=== PATIENT | female | born 1985 | race Caucasian/White ===

== ENCOUNTER 2020-11-22 15:09 | Emergency (ER) | payer OTHER, SELFPAY ==
--- NOTE | 2020-11-22 15:14 | ED.GENADULT ---
HPI - General Adult General Chief complaint: Upper Respiratory Infection Stated complaint: cold symptoms Time Seen by Provider: 11/22/20 15:14 Source: patient Mode of arrival: ambulatory Limitations: no limitations History of Present Illness HPI narrative: 35-year-old female patient presents to the [facility] with request to be tested for COVID-19. Patient states she has no symptoms however her boyfriend that she lives with has had symptoms for the last 2 days is being tested today. Patient states she needs something for work. Related Data Home Medications Medication Instructions Recorded Confirmed fluticasone propionate 50 1 spray NASAL ONCE ml 01/27/20 11/22/20 mcg/actuation nasal spray,suspension levonorgestrel 20 mcg/24 hours (6 1 device I-UTERINE ONCE 01/27/20 11/22/20 yrs) 52 mg intrauterine device cfjhqfcyaicj-rzz-eolb-FA-vit K tablet PO 11/22/20 [Adults Multivitamin] Allergies Allergy/AdvReac Type Severity Reaction Status Date / Time No Known Allergies Allergy Unknown Verified 01/27/20 15:05 Review of Systems Review of Systems: Narrative: CONSTITUTIONAL: Denies fever, chills, or sweats. EYES: Denies visual changes, redness, or discharge. ENT: Denies rhinorrhea, congestion, sore throat, or otalgia. CARDIOVASCULAR: Denies chest pain, palpitations, or edema. RESPIRATORY: Denies cough or dyspnea. GASTROINTESTINAL: Denies abdominal pain, nausea, vomiting, or diarrhea. GENITOURINARY: Denies dysuria or hematuria. SKIN: Denies rash or itching. MUSCULOSKELETAL: Denies back pain, joint pain, or myalgia. NEUROLOGIC: Denies headache, numbness, or weakness. PSYCHIATRIC: Denies anxiety or depression. [facility] Past Medical History Medical History (Updated 11/22/20 @ 15:47 by UTE Earl) Healthy adult No significant past medical history Family History Family History Other Acute myocardial infarction Cerebrovascular accident Depression Diabetes mellitus Heart disease Hypertension Social History Social History Smoking status: Never smoker Alcohol intake: current Substance use: never Comments Test Exam Narrative: Exam Narrative: GENERAL: Well-appearing, well-nourished, and in no acute distress. HEAD: Normocephalic, atraumatic. EYES: PERRLA and EOMI. ENT: Nares clear, no rhinorrhea or epistaxis. Mucous membranes moist. NECK: Supple. No lymphadenopathy CHEST: Clear to auscultation. No respiratory distress. HEART: Regular rate and rhythm. No murmur heard. Normal peripheral pulses. ABDOMEN: Soft, nontender, nondistended, normal active bowel sounds. EXTREMITIES: Normal range of motion. No edema. SKIN: Warm, dry, no rash. NEURO: No focal deficits. Alert and oriented x3. Course Vital Signs Vital signs: Vital Signs Temperature 36.3 C L 11/22/20 15:24 Pulse Rate 66 11/22/20 15:24 Respiratory Rate 16 11/22/20 15:24 Blood Pressure 107/68 11/22/20 15:24 Pulse Oximetry 100 11/22/20 15:24 Temperature 36.3 C L 11/22/20 15:24 Pulse Rate 66 11/22/20 15:24 Respiratory Rate 16 11/22/20 15:24 Blood Pressure 107/68 11/22/20 15:24 Pulse Oximetry 100 11/22/20 15:24 Vital signs reviewed Medical Decision Making Differential Diagnosis Differential Diagnosis: Differential diagnosis: URI, sinusitis, seasonal allergies, COVID-19 Discussed with patient that we are not a public testing facility and we only see patients with symptoms. Discussed with her that since she has no symptoms and her boyfriend has only had symptoms for 2 days we will need to wait to test her. Discussed with her that if we test her today she most likely is going to come up negative which is most likely going to be a false negative. Discussed with patient that she will need to wait a minimum of 6 days before she can get tested and as long as she continues not to have sympto
[2020-11-22 15:24] VITALS: BP 107/68; PULSE 66; RESP 16; TEMP 36.3; O2SAT 100
== END 2020-11-22 15:54 | disposition home or self-care (01) ==
PROVIDERS: Emergency Provider Nurse Practitioner Family
DX: Z20.822 Contact with and (suspected) exposure to COVID-19 (principal)
CPT/HCPCS: 99211; G0463

== ENCOUNTER 2020-12-05 21:39 | Emergency (ER) | payer OTHER, SELFPAY ==
--- NOTE | ~2020-12-05 | CT_ITS ---
EXAMINATION: CT abdomen pelvis w con DATE: 12/05/2020 23:29 INDICATION: Abdominal pain. TECHNIQUE: Computed tomography (CT) of the abdomen and pelvis was performed with 100 mL Omnipaque 350 intravenous contrast. Automated exposure control and iterative reconstruction technique were employe d. The dose-length product was 521.49 mGy-cm. COMPARISON: None. FINDINGS: The visualized portions of the lung bases are clear without pneumonia or pleural effusion. The heart size is normal. No pericardial effusion. The liver, gallbladder, spleen, pancreas, adrenal glands, and right kidney are normal. There is a 10 mm cyst in left kidney. There are no dilated loops of bowel. The appendix is normal. There is an intrauterine device in expected position. There are no pathologically enlarged lymph nodes. There is no free intraperitoneal fluid. There is mild thoracolu mbar spondylosis. IMPRESSION: 1. No etiology for the patient's symptoms. Reviewed, dictated and finalized at location A.
[2020-12-05 21:41] VITALS: BP 120/74; PULSE 74; RESP 18; TEMP 36; O2SAT 100
[2020-12-05] MEDS: SODIUM CHLORIDE 0.9% IV 1,000 ML 999 ML IV CONT (22:29)
--- NOTE | 2020-12-05 22:30 | ED.GENADULT ---
HPI - General Adult General Chief complaint: Abdominal Pain Stated complaint: epigstric pain, back pain Time Seen by Provider: 12/05/20 22:04 History of Present Illness HPI narrative: Patient 35-year-old female presents emerged part with chief complaint of abdominal pain. Patient reports that she has epigastric discomfort and radiates to her back. The patient states that it started this morning after she had pancakes and some fruit. Patient states she has had some episodes similar to this before in the past but today is worse than normal. Patient states the pain is sharp states is worse whenever she lays back patient denies nausea vomiting diarrhea patient denies fever chills Related Data Home Medications Medication Instructions Recorded Confirmed fluticasone propionate 50 1 spray NASAL ONCE ml 01/27/20 11/22/20 mcg/actuation nasal spray,suspension levonorgestrel 20 mcg/24 hours (6 1 device I-UTERINE ONCE 01/27/20 11/22/20 yrs) 52 mg intrauterine device drttzszveuvk-zaz-tcus-FA-vit K tablet PO 11/22/20 [Adults Multivitamin] sumatriptan succinate See Rx Instructions PO .COMPLEX PRN 12/05/20 Allergies Allergy/AdvReac Type Severity Reaction Status Date / Time No Known Allergies Allergy Unknown Verified 12/05/20 21:45 Review of Systems Review of Systems: Narrative: A 10 system review of systems was completed on the patient and is negative except for what is stated in the HPI. Nursing and ancillary documentation was reviewed. PMFSH Past Medical History Medical History Healthy adult No significant past medical history Family History Family History Other Acute myocardial infarction Cerebrovascular accident Depression Diabetes mellitus Heart disease Hypertension Social History Social History Smoking status: Never smoker Alcohol intake: current Substance use: never Exam Narrative: Exam Narrative: GENERAL: Well-appearing, well-nourished, and in no acute distress. HEAD: Normocephalic, atraumatic. EYES: PERRLA and EOMI. ENT: Nares clear, no rhinorrhea or epistaxis. Mucous membranes moist. NECK: Supple. CHEST: Clear to auscultation. No respiratory distress. HEART: Regular rate and rhythm. No murmur heard. Normal peripheral pulses. ABDOMEN: Soft, tenderness to palpation in the epigastric region, nondistended, normal active bowel sounds. EXTREMITIES: Normal range of motion. No edema. SKIN: Warm, dry, no rash. NEURO: No focal deficits. Alert and oriented x3. PSYCH: Normal mood and affect. Course Vital Signs Vital signs: Vital Signs Temperature 36.0 C L 12/05/20 21:41 Pulse Rate 74 12/05/20 21:41 Respiratory Rate 18 12/05/20 21:41 Blood Pressure 120/74 12/05/20 21:41 Pulse Oximetry 100 12/05/20 21:41 Temperature 36.0 C L 12/05/20 21:41 Pulse Rate 74 12/05/20 21:41 Respiratory Rate 18 12/05/20 21:41 Blood Pressure 120/74 12/05/20 21:41 Pulse Oximetry 100 12/05/20 21:41 Medical Decision Making Vital Signs Vital Signs: Vital Signs Temperature 36.0 C L 12/05/20 21:41 Pulse Rate 74 12/05/20 21:41 Respiratory Rate 18 12/05/20 21:41 Blood Pressure 120/74 12/05/20 21:41 Pulse Oximetry 100 12/05/20 21:41 Temperature 36.0 C L 12/05/20 21:41 Pulse Rate 74 12/05/20 21:41 Respiratory Rate 18 12/05/20 21:41 Blood Pressure 120/74 12/05/20 21:41 Pulse Oximetry 100 12/05/20 21:41 Lab Data Result diagrams: 12/05/20 22:26 12/05/20 22:26 Labs: Lab Results 12/05/20 12/05/20 12/05/20 Range/Units 22:26 22:26 22:26 WBC 9.8 (4.5-10.0) K/mm3 RBC 4.46 (4.2-5.4) M/mm3 Hgb 12.8 (12.0-15.0) g/dL Hct 40.3 (37.0-47.0) % MCV 90.4 (80-100) fl MCH 28.7 (26-34) pg MCHC 31.
[2020-12-05] MEDS: PANTOPRAZOLE SODIUM IV 40 MG VIAL IV PUSH (22:32)
[2020-12-05] MEDS: ONDANSETRON INJ 4 MG/2 ML VIAL IV PUSH (22:32)
[2020-12-05] MEDS: DICYCLOMINE HCL INJ 20 MG/2 ML VIAL IM (22:33)
[2020-12-05 22:35] LABS: Add Urine Microscopic? YES; Appearance Urine Clear (Clear); Bilirubin Urine Negative (Negative); Blood Urine Negative (Negative); Color Urine Straw (Yellow); Glucose Urine UA Negative (Negative); Ketones Urine Trace mg/dL (Negative); Leukocyte Esterase Ur Negative LEU/UL (Negative); Mucus Urine Rare /lpf; Nitrate Urine Negative (Negative); Protein Urine Negative (Negative); RBC Urine 0-2 /hpf (0-2); Specific Grav Ur 1.013 (1.001-1.035); Squamous Epithelial Cell Urine Occasional /hpf (Few); Urobilinogen Urine Negative mg/dL (<2.0); WBC Urine 0-3 /hpf
[2020-12-05 22:36] LABS: Basophils Percent Auto 0.4 % (0.2-1.2); Eosinophils Absolute Auto 0.2 K/mm3 (0-0.3); Eosinophils Percent Auto 1.9 % (0-4.4); Hematocrit 40.3 % (37.0-47.0); Hemoglobin 12.8 g/dL (12.0-15.0); Immature Granulocyte Absolute 0.03 K/mm3 (0.00-0.031); Immature Granulocyte Percent A 0.3 % (0-0.5); Lymphocytes Absolute Auto 3.68 K/mm3 (0.9-3.2); Lymphocytes Percent Auto 37.7 % (18.3-44.2); Mean Corpuscular HGB Conc 31.8 g/dl (32-36); Mean Corpuscular Hemoglobin 28.7 pg (26-34); Mean Corpuscular Volume 90.4 fl (80-100); Mean Platelet Volume 10.5 fl (7.4-10.4); Monocytes Absolute Auto 0.9 K/mm3 (0.1-0.6); Monocytes Percent Auto 8.9 % (2.6-8.5); Neutrophils Percent Auto 50.8 % (45.5-73.1); Platelet Count Result 357 k/mm3 (150-375); Red Blood Count 4.46 M/mm3 (4.2-5.4); Red Cell Distribution Width 13.7 % (11.5-14.5); White Blood Count 9.8 K/mm3 (4.5-10.0)
[2020-12-05 22:48] LABS: Alanine Aminotransferase 10 U/L (4-35); Albumin Level 4.6 g/dL (3.5-5.1); Alkaline Phosphatase 43 U/L (38-126); Anion Gap 5 mmol/L (8-16); Aspartate Amino Transferase 24 U/L (14-36); Bilirubin,Total 0.2 mg/dL (0.2-1.3); Blood Urea Nitrogen 14 mg/dL (7-17); Calcium 9.8 mg/dL (8.4-10.2); Carbon Dioxide 30 mmol/L (22-30); Chloride 103 mmol/L (98-107); Estimated CRCL calculation 93 ml/min; Estimated Glomerular Filt Rate > 60; Glucose 93 mg/dL (65-105); Lipase 56 U/L (23-300); Potassium 3.9 mmol/L (3.4-5.0); Sodium 138 mmol/L (137-145)
[2020-12-06 01:14] VITALS: BP 110/70; PULSE 70; RESP 16; TEMP 36.1; O2SAT 99
== END 2020-12-06 01:15 | disposition home or self-care (01) ==
PROVIDERS: Emergency Provider Emergency Medicine; PCP Family Medicine
DX: K29.00 Acute gastritis without bleeding (principal)
CPT/HCPCS: 36415; 74177; 80053; 81001; 81025; 83690; 85025; 96361; 96372; 96374; 96375; 99284; C9113; J0500; J2405; J7030; Q9967

== ENCOUNTER → 2021-01-19 02:43 | Outpatient (CLI) | payer OTHER, SELFPAY ==
[2021-01-19 23:32] LABS: SARS-CoV-2 RNA PCR Negative
== END ==
PROVIDERS: PCP Family Medicine; Visit Provider Internal Medicine Gastroenterology
DX: Z01.812 Encounter for preprocedural laboratory examination (principal); Z20.822 Contact with and (suspected) exposure to COVID-19
CPT/HCPCS: C9803; U0003; U0005

== ENCOUNTER 2021-01-22 02:34 | Day surgery (SDC) | payer OTHER, SELFPAY ==
[2021-01-22 09:00] VITALS: BP 102/63; PULSE 67; RESP 18; TEMP 37.1; O2SAT 100; BMI 27.3
[2021-01-22] MEDS: LACTATED RINGERS 1,000 ML 150 ML IV CONT (09:03)
--- NOTE | 2021-01-22 09:28 | WPDANESEPPF ---
Anes - Initial Pre Proc Eval Procedure: Operation Date: 01/22/21 10:00 Proposed Procedures p Esophagogastroduodenoscopy - Sav Pressley MD Date/Time: 01/22/21 09:28 Surgeon: Sav Pressley MD Pre Op Diagnosis: epigastic pain Patient Data Age: 35 Gender: F Height: 5 ft 3 in Weight: 70 kg Last Vital Signs Temp 98.8 F 01/22/21 09:00 Pulse 67 01/22/21 09:00 Resp 18 01/22/21 09:00 BP 102/63 01/22/21 09:00 Pulse Ox 100 01/22/21 09:00 Allergies Allergy/AdvReac Type Severity Reaction Status Date / Time No Known Allergies Allergy Unknown Verified 01/14/21 11:56 Home Medications Medication Instructions Recorded Confirmed Type fluticasone propionate 50 1 spray NASAL ONCE PRN ml 01/27/20 01/14/21 History mcg/actuation nasal spray,suspension levonorgestrel 20 mcg/24 hours (6 1 device I-UTERINE ONCE 01/27/20 01/14/21 History yrs) 52 mg intrauterine device ktfsddvvweii-jgt-qoxv-FA-vit K 1 tablet PO DAILY 11/22/20 01/14/21 History [Adults Multivitamin] pantoprazole 40 mg tablet,delayed 40 mg PO HS #30 tablet 12/31/20 01/14/21 Rx release topiramate 25 mg tablet 25 mg PO DAILY #30 tablet 01/19/21 Rx Patient hx anesthesia problems: none Family hx anesthesia problems: none PMFSH Past Medical History Medical History (Updated 01/22/21 @ 09:27 by Joel Ely MD) Epigastric pain Healthy adult Migraine No significant past medical history Family History Family History Other Acute myocardial infarction Cerebrovascular accident Depression Diabetes mellitus Heart disease Hypertension Social History Social History Smoking status: Never smoker Alcohol intake: current Substance use: never Living arrangements: with family Spiritual care concerns: No Anes - Eval Final PreProcedure Day of Procedure 01/22/21 09:28 Patient weight: normal Heart: regular rate and rhythm Lungs: clear to auscultation Airway: Mallampati scale class II Neurological: alert and oriented Last oral intake: >/= 8 hours ASA classification: II Emergent: no Anesthetic plan: proceed Anesthesia type and monitoring: general GIVS and standard monitoring Informed Consent: The patient's anesthetic plan and its attendant risks and benefits were discussed with the patient/family/POA. Questions were solicited and answers provided to the satisfaction of the patient/family/POA.
--- NOTE | 2021-01-22 09:36 | PM.HPGS ---
History of Present Illness History of Present Illness Consent: Risks, benefits, and alternatives have been discussed and questions answered. Patient agrees to proceed with procedure. Chief complaint: epigastic pain Narrative: Maty Dubois is a 35 year old female Referred for investigation of epigastric pain. This began 6 weeks ago, initially more severe in the back with radiation to the epigastric area. She went to the emergency room where investigation was negative, including CT scan. She was started on pantoprazole which has helped to some extent. Initially pain radiated from the xiphoid area up the left side of her chest laterally. This has resolved for the most part. She has a persistent constant discomfort high in the epigastric area. This would be worse after eating anything spicy. For few years she has been avoiding gluten because even if there is a scant bit of gluten in a seasoning packet she will have severe symptoms. Her weight has been stable Review of Systems Review of Systems: All systems reviewed & are unremarkable except as noted in HPI and below PMFSH Past Medical History Medical History Epigastric pain Healthy adult Migraine No significant past medical history Family History Family History Other Acute myocardial infarction Cerebrovascular accident Depression Diabetes mellitus Heart disease Hypertension Social History Social History Smoking status: Never smoker Alcohol intake: current Substance use: never Living arrangements: with family Spiritual care concerns: No Meds Home Medications and Allergies Home Medications Medication Instructions Recorded Confirmed Type fluticasone propionate 50 1 spray NASAL ONCE PRN ml 01/27/20 01/14/21 History mcg/actuation nasal spray,suspension levonorgestrel 20 mcg/24 hours (6 1 device I-UTERINE ONCE 01/27/20 01/14/21 History yrs) 52 mg intrauterine device wckgmuegxvig-prk-zhzq-FA-vit K 1 tablet PO DAILY 11/22/20 01/14/21 History [Adults Multivitamin] pantoprazole 40 mg tablet,delayed 40 mg PO HS #30 tablet 12/31/20 01/14/21 Rx release topiramate 25 mg tablet 25 mg PO DAILY #30 tablet 01/19/21 Rx Allergies Allergy/AdvReac Type Severity Reaction Status Date / Time No Known Allergies Allergy Unknown Verified 01/14/21 11:56 Vital Signs Vital Signs - 24 hr 01/22/21 09:00 Temperature 37.1 C Pulse Rate 67 Respiratory Rate 18 Blood Pressure 102/63 Pulse Oximetry 100 Exam Resp: Auscultation: clear to auscultation bilaterally Cardio: Rate: regular rate Rhythm: regular rhythm GI: GI Palp: Yes Soft to palpation and No Tenderness to palpation present (GI) Assessment and Plan Assessment and plan (1) Epigastric pain: Code(s): R10.13 - Epigastric pain Status: Acute Assessment and Plan: EGD with possible biopsy or dilatation or cautery.
[2021-01-22 10:03] VITALS: BP 87/54; PULSE 56; RESP 18; O2SAT 99
[2021-01-22 10:13] VITALS: BP 95/57; PULSE 53; RESP 18; O2SAT 99
[2021-01-22 10:23] VITALS: BP 108/74; PULSE 55; RESP 16; O2SAT 100
== END 2021-01-22 10:43 | disposition home or self-care (01) ==
PROVIDERS: PCP Family Medicine; Visit Provider Internal Medicine Gastroenterology
PROC: 0DJ08ZZ Inspection of Upper Intestinal Tract, Via Natural or Artificial Opening Endoscopic (ICD-10-PCS; CPT 43235; principal; 2021-01-22 10:00)
DX: R10.13 Epigastric pain (principal); K90.41 Non-celiac gluten sensitivity
CPT/HCPCS: 43239; 87081; 88305; C9803; J2704; J7120; U0003; U0005

== ENCOUNTER 2024-03-04 10:51 | Emergency (ER) | payer OTHER, SELFPAY ==
[2024-03-04 11:06] VITALS: BP 122/69; PULSE 80; RESP 20; TEMP 36.7; O2SAT 100
== END 2024-03-04 13:09 | disposition left against medical advice (07) ==
LOC: ANHED 13:07
PROVIDERS: Emergency Provider Emergency Medicine; PCP Family Medicine
DX: R10.13 Epigastric pain (principal)
CPT/HCPCS: 99199